=== PATIENT | male | born 1965 | race Caucasian/White ===

== ENCOUNTER 2024-10-01 09:39 | Outpatient (CLI) | payer MEDICARE, MEDICAID ==
--- NOTE | 2024-10-01 10:20 | RADIOLOGY REPORT ---
EXAM: CT CT CHEST LOW DOSE HISTORY: CT LOWDOSE LUNG CA SCREENING COMPARISON: None TECHNIQUE: Noncontrast helical CT images of the chest were performed utilizing low dose lung cancer s creening protocol. Sagittal and coronal reformatted images were obtained. This CT exam was performed using one or more of the following dose reduction techniques: Automated exposure control, adjustment of the mA and/or kV according to patient size, or use of iterative reconstruction technique. Radiation Dose: CT Dose: CTDI volume is 2.8 mGy. Dose-length product is 108.79 mGy*cm FINDINGS: No noncalcified pulmonary nodules, consolidative infiltrates, pneumothorax, pleural effusio ns, or pulmonary edema. There is a calcified granuloma in the right lower lobe. There is mild central peribronchial thickening. There is moderate to severe centrilobular emphysema. No suspicious mediast inal or axillary adenopathy. The heart is not enlarged. No thoracic aortic aneurysm. There is bilater al gynecomastia. There is fecal retention in the partially visualized colon. 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 There is minimal thoracic scoliosis. IMPRESSION: 1. No noncalcified pulmonary nodules are identified bilaterally. 2. Moderate to severe emphysema. 3. Mild reactive airways disease. 4. Fecal retention in the partially visualized colon which may indicate constipation. Lung-RADS 1. Negative. Continue annual screening with LDCT in 12 months. Lung-RADS [id number].
== END 2024-10-01 23:59 | disposition home or self-care (01) ==
LOC: RAD 09:39
PROVIDERS: ATTEND Student in an Organized Health Care Education/Training Program
DX: Z12.2 Encounter for screening for malignant neoplasm of respiratory organs (principal); F17.210 Nicotine dependence, cigarettes, uncomplicated; J43.9 Emphysema, unspecified
CPT/HCPCS: 71271